=== PATIENT | female | born 1960 | race Asian ===

== ENCOUNTER 2021-08-26 10:45 | Emergency (ER) | payer OTHER ==
[2021-08-26 11:00] VITALS: BMI 28.0
[2021-08-26] MEDS ORDERED: CASIRIVIMAB/IMDEVIMAB 10 ML in SODIUM CHLORIDE 100 ML IVPB ONE (13:47)
[2021-08-26 14:53] LABS: HEMATOCRIT 36.9 % (32.4-45.2); HEMOGLOBIN 12.1 GM/dL (10.7-15.3); MCH 26.7 pg (25.7-33.7); MCHC 32.9 g/dl (32.0-36.0); MEAN CELL VOLUME 81.3 fl (80-96); MEAN PLT VOLUME 8.4 fl (7.5-11.1); PLATELET COUNT 264 10^3/uL (134-434); RBC 4.54 M/mm3 (3.60-5.2); RDW 18.4 % (11.6-15.6); WHITE BLOOD COUNT 8.2 K/mm3 (4.0-10.0)
[2021-08-26 15:14] LABS: ALBUMIN 3.8 g/dl (3.4-5.0); BILIRUBIN,TOTAL 0.4 mg/dL (0.2-1); BLOOD UREA NITROGEN 11.4 mg/dL (7-18); CALCIUM 8.8 mg/dL (8.5-10.1); CREATININE 0.7 mg/dL (0.55-1.3); TOT PROT 8.1 g/dl (6.4-8.2)
[2021-08-26 17:15] VITALS: BP 111/66; PULSE 89; TEMP 98.8
== END 2021-08-26 18:06 | disposition home or self-care (01) ==
LOC: JCOVINFU 10:45 → JER 10:45 → JCOVINFU 18:06
PROC: 3E033GC Introduction of Other Therapeutic Substance into Peripheral Vein, Percutaneous Approach (ICD-10-PCS; principal; 2021-08-26)
DX: U07.1 COVID-19 (principal); J06.9 Acute upper respiratory infection, unspecified
CPT/HCPCS: 36415; 80053; 85027; 87651; 87804; 87807; 99284-25; C9803; Q0240; U0003; U0005